=== PATIENT | male | born 1950 | race Caucasian/White ===

== ENCOUNTER → 2017-07-16 | Outpatient (CLI) | payer OTHER ==
[~2017-07-16] MED LIST: CHOL100027 PO; COEN1CAP40 PO; CYCL10TA6 PO; HYDR5TAB27 PO; MULT-618 PO; NXM/40 PO; PRAV20TA PO; [UNRECOGNIZED DRUG - OTHER] PO
[2017-07-16 12:15] LABS: BASO % 0.8 %; BASO ABS # 0.06 K/uL (0-0.2); COMPLETE YES; EOS % 4.7 %; HEMATOCRIT 46.3 % (42-52); IG% 0.3 %; LYMPH ABS # 2.52 K/uL (1.2-3.4); MEAN CELL VOLUME 94.1 fL (80-100); MEAN CORPUSCULAR HEMOGLOBIN 29.9 pg (25-34); MEAN CORPUSCULAR HGB CONC 31.7 g/dl (32-36); MEAN PLATELET VOLUME 11.1 fL (7.4-10.4); MONO % 9.9 %; NEUT % 49.3 %; PLATELET COUNT 221 K/uL (130-400); RED BLOOD COUNT 4.92 M/uL (4.7-6.1)
[2017-07-16 12:57] LABS: ALT/SGPT 30 U/L (12-78); BLOOD UREA NITROGEN 19 mg/dl (7-18); BUN/CREATININE RATIO 17.5 (10-20); CALCIUM 9.7 mg/dl (8.5-10.1); CARBON DIOXIDE 28 mmol/L (21-32); CHLORIDE 104 mmol/L (98-107); CHOLESTEROL 171 mg/dl (0-200); GLUCOSE 118 mg/dl (70-99); POTASSIUM 3.6 mmol/L (3.5-5.1); SODIUM 140 mmol/L (136-145)
[2017-07-16 13:01] LABS: ALB/GLOB RATIO 1.2 (0.9-2); ALKALINE PHOSPHATASE 45 U/L (45-117); AST/SGOT 19 U/L (15-37); CHOLESTEROL/HDL RATIO 2.9; HDL CHOLESTEROL 59 mg/dl; LDL CHOLESTEROL CALCULATED 74 mg/dl; TRIGLYCERIDES 189 mg/dl (0-150); VERY LOW DENSITY LIPOPROT CALC 38 mg/dl
[2017-07-16 13:05] LABS: ESTIMATED AVERAGE GLUCOSE 108 mg/dl; HA1C FLAG Normal (Normal)
== END | disposition home or self-care (01) ==
LOC: C.LABBFT 09:17
PROVIDERS: ATTEND Physician Assistant Medical
DX: R73.01 Impaired fasting glucose (principal); D21.9 Benign neoplasm of connective and other soft tissue, unspecified; R97.20 Elevated prostate specific antigen [PSA]; E78.5 Hyperlipidemia, unspecified

== ENCOUNTER 2025-07-13 01:44 | Observation (INO) ==
[2025-07-13] MEDS ORDERED: VANCOMYCIN CONSULT ACTIVE PRN (01:56)
--- NOTE | 2025-07-13 01:58 | Emergency Department Note ---
History of Present Illness General Chief complaint: Referred by Doctor Stated complaint: ABN LABS Time Seen by Provider: 07/13/25 01:45 History of Present Illness Maximum Pain Intensity: 2 This 75-year-old male that I saw yesterday for subjective fever and chills his is currently admitted for positive blood cultures and urine infection presents for positive blood culture. He had a septic workup yesterday with no acute findings noted. He complains of subjective fever and chills. Patient denies chest pain, dyspnea, vomiting, diarrhea, urinary symptoms. Patient was called back and by staff for the positive blood culture. Home Medications Medication Instructions Recorded Confirmed Type famotidine 20 mg tablet 20 mg PO BID PRN 09/01/20 07/11/25 History HEARTBURN/INDIGESTION multivitamin 1 tab PO QAM 03/27/21 07/11/25 History losartan 50 mg tablet 50 mg PO BID 90 days #180 tabs 08/05/24 07/11/25 Rx potassium chloride 20 mEq 20 meq PO QAM #90 tabs 08/05/24 07/11/25 Rx tablet,extended release pravastatin 40 mg tablet 40 mg PO DAILY #90 tabs 08/05/24 07/11/25 Rx acetaminophen 650 mg 1,300 mg PO DIRECTED PRN Pain 08/20/24 07/11/25 History tablet,extended release (Tylenol Arthritis Pain) Allergies Allergy/AdvReac Type Severity Reaction Status Date / Time No Known Allergies Allergy Verified 07/11/25 23:07 Past Med/Surg History Problem List (Updated 07/13/25 @ 02:01 by Ynes Vela PA-C) Positive blood culture (Acute) Fatigue (Acute) Herniation of lumbar intervertebral disc with radiculopathy Lumbar stenosis without neurogenic claudication Flat back Lumbar spondylosis Protrusion of lumbar intervertebral disc Lumbar spinal stenosis GERD (gastroesophageal reflux disease) (Acute 03/10/13) Chest pain (Acute) Impaired fasting glucose Hypertension (Chronic) Hyperlipidemia BPH (benign prostatic hyperplasia) Incomplete emptying of bladder Elevated prostate specific antigen (PSA) Right sided sciatica Medical History Renal cyst, right Gross hematuria Colon cancer screening Medicare annual wellness visit, subsequent Other and unspecified hyperlipidemia (03/10/13) 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 Mcelroy, normal findings, recheck 10 years History of hand surgery "couple fingers reconnected on my right hand"--denies any hardware Family History Mother Heart disease COPD (chronic obstructive pulmonary disease) Father Myocardial infarction Coronary heart disease Brother Hypertension Family hx colonic polyps Other No family history of adverse response to anesthesia Denies family history of Ovarian cancer Prostate cancer Breast cancer Colorectal cancer Social History Smoking Status: Never smoker Second Hand Exposure: No; Do You Dip or Chew Tobacco: No; Hx Alcohol Use: Yes Alcohol type: hard liquor Alcohol Intake Frequency: 4 or More x per/Week Hx Substance Use: No Preferred Language: Albanian Communication Ability: Effective Visual Impairment: No Limitations Hearing Ability: Normal Nutrition Partner Required: No Beliefs That Will Affect Care: None marital status: Current Living Situation: Spouse current occupational status: retired 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 Feels Safe at Home: Yes Childhood Exposure to Second-Hand Smoke: Yes Diet: regular caffeine: Yes (rarley) Dental Care, Regularly: Yes Physical Activity Frequency Comment: as able Seatbelt Use: always Sunscreen Use: Yes Assistive Devices: Glasses Review of Systems A total of 10 systems reviewed and were otherwise negative Physical Exam Vital Signs Vital Signs - 24 hr 07/13/25 01:45 07/13/25 01:48 07/13/25 02:04 Temperature 36.7 C Temperature Source Oral Pulse Rate 70 89 73 Pulse Rate [Apical] Pulse Rate from SpO2 Sensor Pulse Rhythm [Apical] Pulse Strength [Apical] Respiratory Rate 16 18 Respiratory Effort / Characteristics Respiratory Depth Respiratory Pattern Blood Pressure 136/79 Blood Pressure [Left Arm] Blood Pressure Mean 98 Blood Pressure Mean [Left Arm] Blood Pressure Position [Left Arm] Pulse Oximetry 98 96 Oxygen Delivery Method Room Air Room Air Sepsis Recent Fever Within 48 Hours No Sepsis New/Unexplained Change in Mental Status No Sepsis Action Taken by Nursing No Action Required 07/13/25 02:06 07/13/25 02:10 07/13/25 02:15 Temperature Temperature Source Pulse Rate 74 Pulse Rate [Apical] 70 Pulse Rate from SpO2 Sensor Pulse Rhythm [Apical] Regular Pulse Strength [Apical] Normal Respiratory Rate 18 18 Respiratory Effort / Characteristics Non-Labored Spontaneous Respiratory Depth Normal Respiratory Pattern Regular Blood Pressure 142/82 H Blood Pressure [Left Arm] 142/82 H Blood Pressure Mean 90 Blood Pressure Mean [Left Arm] 102 Blood Pressure Position [Left Arm] Lying Pulse Oximetry 96 Oxygen Delivery Method Room Air Sepsis Recent Fever Within 48 Hours Sepsis New/Unexplained Change in Mental Status Sepsis Action Taken by Nursing 07/13/25 02:15 Temperature Temperature Source Pulse Rate 71 Pulse Rate [Apical] Pulse Rate from SpO2 Sensor 72 Pulse Rhythm [Apical] Pulse Strength [Apical] Respiratory Rate 17 Respiratory Effort / Characteristics Respiratory Depth Respiratory Pattern Blood Pressure Blood Pressure [Left Arm] Blood Pressure Mean Blood Pressure Mean [Left Arm] Blood Pressure Position [Left Arm] Pulse Oximetry 98 Oxygen Delivery Method Room Air Sepsis Recent Fever Within 48 Hours Sepsis New/Unexplained Change in Mental Status Sepsis Action Taken by Nursing VITALS: Vitals are noted on the nurse's note and reviewed by myself. Vital signs stable. GENERAL: Pleasant gentleman ambulated from triage to [facility] without difficulties, in no acute distress, nondiaphoretic, well-developed well-nourished. SKIN: The skin was without rashes, erythema, edema, or bruising. There is no tenting of the skin. Capillary reflex less than 2 seconds. HEAD: Normocephalic atraumatic. EARS: External auditory canals clear EYES: Pupils equal round and reactive to light and accommodation. Conjunctivae without injection, sclerae without icterus. Extraocular movements intact. NOSE: Patent, no discharge. MOUTH: Mucous membranes moist. Pharynx without erythema or exudate. Uvula midline. Airway patent. Tongue does not deviate. NECK: Supple without nuchal rigidity. No lymphadenopathy. No thyromegaly. Cervical spine is nontender. No JVD. HEART: Regular rate and rhythm LUNGS: Clear to auscultation bilaterally without wheezes, rales or rhonchi. No retractions or accessory muscle use. ABDOMEN: Positive bowel sounds x 4. Normal tympanic percussion. Soft, nontender, without masses or organomegaly. Rivas sign negative. No guarding or rebound tenderness. No CVA tenderness MUSCULOSKELETAL: No muscle atrophy, erythema, or edema noted. NEURO: Patient was alert and oriented to person place and time. Normal sensation to light and sharp touch. No focal neurological deficits. Course Administered Medications Vancomycin HCl 1,500 mg/ (Sodium Chloride) 530 mls @ 200 mls/hr IV NOW ONE Stop: 07/13/25 04:34 Last Admin: 07/13/25 02:47 Dose: 200 mls/hr Documented By: PATTI Discontinued Medications Sodium Chloride (Nss) 1,000 mls @ 999 mls/hr IV .Q1H1M JUDAH Stop: 07/13/25 02:45 Last Infusion: 07/13/25 02:49 Dose: Infused Documented By: Admin: 07/13/25 02:06 Dose: 999 mls/hr Documented By: AVNI Piperacillin Sod/Tazobactam Sod (Zosyn) 4.5 gm in 100 mls @ 200 mls/hr IV NOW STA Stop: 07/13/25 02:14 Last Infusion: 07/13/25 02:49 Dose: Infused Documented By: Admin: 07/13/25 02:09 Dose: 200 mls/hr Documented By: AVNI Medical Decision Making Medical Records Attestation: I reviewed the patient's medical records. Home Medications Current Medication List: was personally reviewed by me Laboratory Data Attestation: I reviewed the patient's lab results. 07/13/25 01:57 07/13/25 01:57 Lab Results 07/13/25 Range/Units 01:57 WBC 7.90 (4.8-10.8) K/ul RBC 5.22 (4.70-6.10) M/uL Hgb 16.1 (14.0-18.0) g/dl Hct 48.0 (42.0-52.0) % MCV 92.0 (80.0-100.0) fL MCH 30.8 (25.0-34.0) pg MCHC 33.5 (32.0-36.0) g/dL RDW Std Deviation 42.2 (36.4-46.3) fL RDW Coeff of Taylor 12.4 (11.5-14.5) % Plt Count 201 (130-400) K/uL MPV 10.3 (9.4-12.4) fL Immature Gran % (Auto) 0.1 % Neut % (Auto) 46.5 % Lymph % (Auto) 42.4 % [place] % (Auto) 9.9 % Eos % (Auto) 0.0 % Baso % (Auto) 1.1 % Neut # (Auto) 3.67 (1.40-6.50) K/uL Lymph # (Auto) 3.35 (1.20-3.40) K/uL [place] # (Auto) 0.78 H (0.11-0.59) K/uL Eos # (Auto) 0.00 (0.00-0.50) K/uL Baso # (Auto) 0.09 (0.00-0.20) K/uL Immature Gran # (Auto) 0.01 (0.01-0.20) K/uL Sodium 141 (136-145) mmol/L Potassium 3.7 (3.5-5.1) mmol/L Chloride 107 (98-107) mmol/L Carbon Dioxide 26 (21-32) mmol/L Anion Gap 8 (3-11) BUN 15 (6-23) mg/dl Creatinine 0.83 (0.6-1.4) mg/dl Est Cr Clr Drug Dosing 83.2 ml/min eGFR 91.84 BUN/Creatinine Ratio 18.1 (10-20) Glucose 113 H (70-99(Fasting)) mg/dl Lactate 1.7 (0.4-2.0) mmol/L Calcium 10.0 (8.6-10.3) mg/dl Magnesium 2.1 (1.7-2.4) mg/dl Total Bilirubin 0.8 (0.2-1.0) mg/dl Direct Bilirubin 0.1 (0-0.2) mg/dl AST 16 (13-39) U/L ALT 15 (7-52) U/L Alkaline Phosphatase 50 (34-104) U/L Troponin I High Sens 9.5 (0-20) pg/ml Total Protein 7.8 (6.0-8.3) gm/dl Albumin 4.7 (3.4-5.0) gm/dl Procalcitonin < 0.02 (0-0.5) ng/ml Imaging Data Attestation: I personally reviewed and interpreted this imaging study as follows: MDM Narrative Prior records/ancillary studies reviewed. Triage Nursing notes reviewed. Additional history obtained from nursing. The patient's history was concerning for positive blood culture Differential diagnosis: Etiologies such as skin contaminant, viral syndrome, otitis, pharyngitis, pneumonia, influenza, meningitis, urinary tract infection, sepsis, bacteremia, as well as others were entertained. Physical examination: As above ER treatment provided: An order was placed for continuous cardiac monitoring. The monitor shows a rate of 60-100 with a sinus rhythm per my interpretation. IV fluids, Zosyn and vancomycin ordered On reassessment the patient felt better. Diagnostics interpreted by me: ECG: Ordered for positive blood culture EKG: Normal sinus, normal intervals, poor baseline, no acute ST-T wave changes, rate 81. Impression normal sinus rhythm independently interpreted by myself The labs Independently Interpreted by myself revealed no worrisome leukocytosis, negative lactic. Negative procalcitonin. Negative troponin. Positive blood culture 1 of 2 Repeat cultures were drawn Imaging studies: Chest x-ray with no acute consolidation, pneumothorax or free air per my independent termination CT was reviewed from yesterday. Consultation: A consultation was placed with hospitalist. The case was discussed and diagnostics were reviewed. The patient was evaluated in the ER for further treatment. This appears to be consistent with 1 of 2 positive blood cultures. Patient started on broad-spectrum antibiotics. Medicine was consulted and case discussed. He will be evaluated for admission. No obvious source. This could be skin contaminant. Patient is agreeable to treatment plan. By the evaluation outlined above emergent etiologies such as otitis, pharyngitis, pneumonia, meningitis, urinary tract infection, as well as others were deemed relatively unlikely. The pt informed about the findings as listed above. All questions were answered and pleased with the treatment. The chart was completed utilizing Peak 10 Speech voice recognition software. Grammatical errors, random word insertions, pronoun errors, and incomplete sentences are an occassional consequence of this system due to software limitations, ambient noise, and hardware issues. Any formal questions or concerns about the content, text, or information contained within the body of this dictation should be directly addressed to the physician registered sales assistant for clarification. Impression & Plan Positive blood culture Discharge Plan Visit Data Chief Complaint: Referred by Doctor Stated Complaint: ABN LABS ED Provider: Vivian [place] ED Midlevel Provider: Ynes Vela Discharge Problem: Positive blood culture Patient Disposition: Admitted As Inpatient Condition: Good Forms Stand Alone Forms: My [facility] Prescriptions Prescriptions: No Action acetaminophen [Tylenol Arthritis Pain] 650 mg tablet extended release 1,300 mg PO DIRECTED PRN (Reason: Pain) pravastatin 40 mg tablet 40 mg PO DAILY Qty: 90 3RF potassium chloride 20 mEq tablet extended release 20 meq PO QAM Qty: 90 3RF losartan 50 mg tablet 50 mg PO BID 90 Days Qty: 180 3RF famotidine 20 mg tablet 20 mg PO BID PRN (Reason: HEARTBURN/INDIGESTION) multivitamin Tablet 1 tab PO QAM Referrals Referrals: Lit Limon DO [Primary Care Provider] -
[2025-07-13] MEDS: SODIUM CHLORIDE 0.9% 1,000 ML IV SCH (02:06)
[2025-07-13] MEDS: PIPERACILLIN/TAZOBACTAM 4.5 GM/100 ML BAG IV STA (02:09)
[2025-07-13 02:21] LABS: Hematocrit (blood only) 48.0 % (42.0-52.0); Hemoglobin 16.1 g/dl (14.0-18.0); Immature Granulocytes # (auto) 0.01 K/uL (0.01-0.20); Immature Granulocytes % (auto) 0.1 %; Mean Corpuscular Hemoglobin 30.8 pg (25.0-34.0); Mean Corpuscular Volume 92.0 fL (80.0-100.0); Platelet Count 201 K/uL (130-400); RDW Standard Deviation 42.2 fL (36.4-46.3); Red Blood Count 5.22 M/uL (4.70-6.10); White Blood Count 7.90 K/ul (4.8-10.8)
--- NOTE | 2025-07-13 02:30 | History & Physical Report ---
Date of Service July 13, 2025 Assessment & Plan (1) Positive blood culture: (2) Fatigue: (3) Hypertension: (4) Hyperlipidemia: Plan #Strep bacteremia/malaise/chills - 1 Blood Cx, pos for streptococcus (further species identification, sensitivities pending) - given 1 dose (4.5 g) Zosyn and 1 dose (1.5 g) of Vancomycin in ER - will start Unasyn, 1.5 g, IV, q6h; will likely need 10-14 days of Tx - consider TTE or ALEX to rule out endocarditis depending upon specific species of Strep Chronic conditions #HLD - continue pravastatin #HTN - continue losartan, KCl #GERD - continue famotidine Code status: Full code Disposition: Med-Surg VTE Prophylaxis: Enoxaparine, 40 mg, subQ, daily FENGI: regular diet, LR 80 mL/hr, 1000 mL total History of Present Illness Chief Complaint: Pos Strep Blood Cx General malaise, chills, lower abdominal pain Primary Care Provider: Lit Limon, DO Patient is a 75 yo M w/ a PMHx of lumbar stenosis/herniation of disc, GERD, HTN, HLD, BPH, right-sided sciatica, r. renal cyst, cervical radiculopathy, laryngopharyngeal reflux, Hx of bladder surgery, presenting today after being seen in ER yesterday w/ concerns for possible sepsis, as he was having some chills and general malaise, and his had recently been admitted to the [facility] for a MRSE bacteremia. Patient denies any recent dental work, had a crown replaced 2 weeks ago, denies any urinary symptoms, does endorse some suprapubic pain and more flatus than normal recently, along with some diarrhea, that got noticeably worse after starting antibiotics yesterday. Patient denies any abdominal pain, nausea, or vomiting. Allergies Allergy/AdvReac Type Severity Reaction Status Date / Time No Known Allergies Allergy Verified 07/11/25 23:07 Home Medications Medication Instructions Recorded Confirmed Type famotidine 20 mg tablet 20 mg PO BID PRN 09/01/20 07/11/25 History HEARTBURN/INDIGESTION multivitamin 1 tab PO QAM 03/27/21 07/11/25 History losartan 50 mg tablet 50 mg PO BID 90 days #180 tabs 08/05/24 07/11/25 Rx potassium chloride 20 mEq 20 meq PO QAM #90 tabs 08/05/24 07/11/25 Rx tablet,extended release pravastatin 40 mg tablet 40 mg PO DAILY #90 tabs 08/05/24 07/11/25 Rx acetaminophen 650 mg 1,300 mg PO DIRECTED PRN Pain 08/20/24 07/11/25 History tablet,extended release (Tylenol Arthritis Pain) Past Med/Surg History Problem List Positive blood culture (Acute) Fatigue (Acute) Herniation of lumbar intervertebral disc with radiculopathy Lumbar stenosis without neurogenic claudication Flat back Lumbar spondylosis Protrusion of lumbar intervertebral disc Lumbar spinal stenosis GERD (gastroesophageal reflux disease) (Acute 03/10/13) Chest pain (Acute) Impaired fasting glucose Hypertension (Chronic) Hyperlipidemia BPH (benign prostatic hyperplasia) Incomplete emptying of bladder Elevated prostate specific antigen (PSA) Right sided sciatica Medical History Renal cyst, right Gross hematuria Colon cancer screening Medicare annual wellness visit, subsequent Other and unspecified hyperlipidemia (03/10/13) 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 Mcelroy, normal findings, recheck 10 years History of hand surgery "couple fingers reconnected on my right hand"--denies any hardware Family History Mother Heart disease COPD (chronic obstructive pulmonary disease) Father Myocardial infarction Coronary heart disease Brother Hypertension Family hx colonic polyps Other No family history of adverse response to anesthesia Denies family history of Ovarian cancer Prostate cancer Breast cancer Colorectal cancer Social History Smoking Status: Never smoker Second Hand Exposure: No; Do You Dip or Chew Tobacco: No; Hx Alcohol Use: Yes Alcohol type: hard liquor Alcohol Intake Frequency: 4 or More x per/Week Hx Substance Use: No Preferred Language: Indian Communication Ability: Effective Visual Impairment: No Limitations Hearing Ability: Normal Import/Export Freight Forwarder Required: No Beliefs That Will Affect Care: None marital status: Current Living Situation: Spouse current occupational status: retired 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 Safe at Home: Yes Childhood Exposure to Second-Hand Smoke: Yes Diet: regular caffeine: Yes (prabhakar) Dental Care, Regularly: Yes Physical Activity Frequency Comment: as able Seatbelt Use: always Sunscreen Use: Yes Assistive Devices: Glasses Review of Systems Constitutional: + chills, + sweats, + fatigue and + talon ise; no fever Respiratory: no cough, no chest congestion, no dyspnea and no wheezing Cardiovascular: no chest pain and no palpitations Gastrointestinal: + excessive flatulence and + diarrhea/lo ose stools; no abdominal pain, no nausea and no vomiting Genitourinary: no dysuria or no urinary frequency Neurologic: + headache(s); no tingling and no numbne ss Physical Exam Constitutional: WD/WN, vitals as above Respiratory: normal respiratory effort, lungs clear to auscultation Cardiovascular: RRR, no murmur, no edema Extremities: normal capillary refill; no calf tenderness Gastrointestinal (Abdomen): Inspection/Auscultation: abdomen normal to inspection and normal bowel sounds Percussion/Palpation: + abdomen tender (suprapubic tenderness) Psychiatric: A+Ox3, euthymic affect Results & Data Results & Data Vital Signs (Past 12 Hours) Vital Signs Temp Pulse Pulse Resp BP BP Pulse Ox 07/13/25 02:15 71 17 98 07/13/25 02:15 70 18 142/82 H 96 07/13/25 02:10 142/82 H 07/13/25 02:06 74 18 07/13/25 02:04 73 07/13/25 01:48 36.7 C 89 18 136/79 96 07/13/25 01:45 70 16 98 O2 Del Method 07/13/25 02:15 Room Air 07/13/25 02:15 Room Air 07/13/25 02:10 07/13/25 02:06 07/13/25 02:04 07/13/25 01:48 Room Air 07/13/25 01:45 Room Air Laboratory Results Laboratory Results WBC 7.90 K/ul (4.8-10.8) 07/13/25 01:57 RBC 5.22 M/uL (4.70-6.10) 07/13/25 01:57 Hgb 16.1 g/dl (14.0-18.0) 07/13/25 01:57 Hct 48.0 % (42.0-52.0) 07/13/25 01:57 MCV 92.0 fL (80.0-100.0) 07/13/25 01:57 MCH 30.8 pg (25.0-34.0) 07/13/25 01:57 MCHC 33.5 g/dL (32.0-36.0) 07/13/25 01:57 RDW Std Deviation 42.2 fL (36.4-46.3) 07/13/25 01:57 RDW Coeff of Taylor 12.4 % (11.5-14.5) 07/13/25 01:57 Plt Count 201 K/uL (130-400) 07/13/25 01:57 MPV 10.3 fL (9.4-12.4) 07/13/25 01:57 Immature Gran % (Auto) 0.1 % 07/13/25 01:57 Neut % (Auto) 46.5 % 07/13/25 01:57 Lymph % (Auto) 42.4 % 07/13/25 01:57 [place] % (Auto) 9.9 % 07/13/25 01:57 Eos % (Auto) 0.0 % 07/13/25 01:57 Baso % (Auto) 1.1 % 07/13/25 01:57 Neut # (Auto) 3.67 K/uL (1.40-6.50) 07/13/25 01:57 Lymph # (Auto) 3.35 K/uL (1.20-3.40) 07/13/25 01:57 [place] # (Auto) 0.78 K/uL (0.11-0.59) H 07/13/25 01:57 Eos # (Auto) 0.00 K/uL (0.00-0.50) 07/13/25 01:57 Baso # (Auto) 0.09 K/uL (0.00-0.20) 07/13/25 01:57 Immature Gran # (Auto) 0.01 K/uL (0.01-0.20) 07/13/25 01:57 Sodium 141 mmol/L (136-145) 07/13/25 01:57 Potassium 3.7 mmol/L (3.5-5.1) 07/13/25 01:57 Chloride 107 mmol/L (98-107) 07/13/25 01:57 Carbon Dioxide 26 mmol/L (21-32) 07/13/25 01:57 Anion Gap 8 (3-11) 07/13/25 01:57 BUN 15 mg/dl (6-23) 07/13/25 01:57 Creatinine 0.83 mg/dl (0.6-1.4) 07/13/25 01:57 Est Cr Clr Drug Dosing 83.2 ml/min 07/13/25 01:57 eGFR 91.84 07/13/25 01:57 BUN/Creatinine Ratio 18.1 (10-20) 07/13/25 01:57 Glucose 113 mg/dl (70-99(Fasting)) H 07/13/25 01:57 Lactate 1.7 mmol/L (0.4-2.0) 07/13/25 01:57 Calcium 10.0 mg/dl (8.6-10.3) 07/13/25 01:57 Magnesium 2.1 mg/dl (1.7-2.4) 07/13/25 01:57 Total Bilirubin 0.8 mg/dl (0.2-1.0) 07/13/25 01:57 Direct Bilirubin 0.1 mg/dl (0-0.2) 07/13/25 01:57 AST 16 U/L (13-39) 07/13/25 01:57 ALT 15 U/L (7-52) 07/13/25 01:57 Alkaline Phosphatase 50 U/L (34-104) 07/13/25 01:57 Troponin I High Sens 9.5 pg/ml (0-20) 07/13/25 01:57 Total Protein 7.8 gm/dl (6.0-8.3) 07/13/25 01:57 Albumin 4.7 gm/dl (3.4-5.0) 07/13/25 01:57 Procalcitonin < 0.02 ng/ml (0-0.5) 07/13/25 01:57 Urine Color Yellow 07/13/25 03:29 Urine Appearance Clear (Clear) 07/13/25 03:29 Urine pH 5.5 (4.5-7.5) 07/13/25 03:29 Ur Specific [place] 1.009 (1.000-1.030) 07/13/25 03:29 Urine Protein Negative (Negative) 07/13/25 03:29 Urine Glucose (UA) Negative (Negative) 07/13/25 03:29 Urine Ketones Negative (Negative) 07/13/25 03: Urine Blood Negative (Negative) 07/13/25 03: Urine Nitrite Negative (Negative) 07/13/25 03:29 Urine Bilirubin Negative (Negative) 07/13/25 03:29 Urine Urobilinogen Negative (Negative) 07/13/25 03:29 Ur Leukocyte Esterase Trace (Negative) H 07/13/25 03:29 Urine WBC (Auto) 0-5 /hpf (0-5) 07/13/25 03:29 Urine RBC (Auto) 0-2 /hpf (0-2) 07/13/25 03:29 U Hyaline Cast (Auto) 0-2 /lpf (0-2) 07/13/25 03:29 U Epithel Cells (Auto) 0-2 /hpf (0-2) 07/13/25 03:29 Urine Bacteria (Auto) None Seen (None Seen) 07/13/25 03:29 Urine Comment 07/13/25 03:29 Impressions Chest X-Ray 07/13/25 01:45 EXAM: XR chest 1V portable CLINICAL HISTORY: Sepsis. TECHNIQUE: An X-ray image of the chest is obtained in AP projection. COMPARISON: 07/11/2025 22:05:50 DIRECTOR OF CONTENT MARKETING. FINDINGS: Pulmonary Parenchyma: Lungs are clear bilaterally. No evidence of consolidation, collapse, or focal opacities. No pulmonary nodules are identified. No evidence of pleural effusion or pleural thickening. Heart and Mediastinum: Heart size and shape are normal. No mediastinal widening or masses. No hilar or mediastinal lymphadenopathy. Bony Thorax: Bony thorax appears intact without fractures or deformities. Stable arthritis AC joints is noted Soft Tissues: Soft tissues overlying the chest wall are unremarkable. IMPRESSION: 1. No acute cardiopulmonary abnormalities are identified. 2. No interval time changes. Electronically signed by Wagner Limon 07-13-2025 03:20 AM Supervising Physician Co-Signing Physician Notes Patient seen and examined, chart reviewed, case discussed with Dr. Jackson and I agree with the assessment and plan as above. Patient with POSITIVE blood cultures - Streptococcus, speciation and sensitivities pending. He is symptomatic with fevers and chills, typically at night. Source unclear - he does endorse some lower abdominal pain. Recently lost a dental crown. Exam is largely unremarkable No heart murmur Lower abdomen is tender to palpation - no rebound or guarding labs and images reviewed blood cultures have been repeated Assessment/Plan -Unasyn for now -Repeat blood cutures sent from the ER -Remainder as above (2) Fatigue Fatigue type: unspecified Qualified Code(s): R53.83 - Other fatigue
[2025-07-13 02:38] LABS: Alanine Aminotransferase 15.0 U/L (7-52); Alkaline Phosphatase 50.0 U/L (34-104); Anion Gap 8.0 (3-11); Bilirubin,Total 0.8 mg/dl (0.2-1.0); Blood Urea Nitrogen 15.0 mg/dl (6-23); Calcium 10.0 mg/dl (8.6-10.3); Carbon Dioxide 26.0 mmol/L (21-32); Chloride 107.0 mmol/L (98-107); Creatinine Clr Calc Pharmacy 83.2 ml/min; Glucose 113.0 mg/dl (70-99(Fasting)); Magnesium 2.1 mg/dl (1.7-2.4); Potassium 3.7 mmol/L (3.5-5.1); Sodium 141.0 mmol/L (136-145); Total Protein 7.8 gm/dl (6.0-8.3)
--- NOTE | 2025-07-13 02:45 | Emergency Department Note ---
ED Visit Note I was consulted by the Advanced Practice Provider. I personally made/approved the management plan and take responsibility for the patient management. I performed a substantive portion of the visit. This includes the aspects of: Personally seeing the patient -MDM -I independently interpreted the following studies:Portable chest x-ray -unremarkable. No obvious signs of consolidation or opacity. .
[2025-07-13] MEDS ORDERED: ONDANSETRON INJ 2 MG/ML 2 ML VIAL IV PRN (02:47)
[2025-07-13] MEDS ORDERED: MELATONIN 3 MG TAB PO PRN (02:47)
[2025-07-13] MEDS ORDERED: ACETAMINOPHEN 325 MG TAB PO PRN (02:47)
[2025-07-13] MEDS ORDERED: POLYETHYLENE (MIRALAX) 17 GM PACK PO PRN (02:47)
[2025-07-13] MEDS: VANCOMYCIN HCL 1,500 MG in SODIUM CHLORIDE 0.9% 500 ML IV ONE (02:47)
--- NOTE | 2025-07-13 03:20 | XRay Report ---
EXAM: XR chest 1V portable CLINICAL HISTORY: Sepsis. TECHNIQUE: An X-ray image of the chest is obtained in AP projection. COMPARISON: 07/11/2025 22:05:50 [employer]LE[employer]ER [employer] PULP. FINDINGS: Pulmonary Parenchyma: Lungs are clear bilaterally. No evidence of consolidation, collapse, or focal opacities. No pulmonary nodules are identified. No evidence of pleural effusion or pleural thickening. Heart and Mediastinum: Heart size and shape are normal. No mediastinal widening or masses. No hilar or mediastinal lymphadenopathy. Bony Thorax: Bony thorax appears intact without fractures or deformities. Stable arthritis AC joints is noted Soft Tissues: Soft tissues overlying the chest wall are unremarkable. IMPRESSION: 1. No acute cardiopulmonary abnormalities are identified. 2. No interval time changes. Electronically signed by Wagner Limon 07-13-2025 03:20 AM
[2025-07-13] MEDS: LACTATED RINGER'S 1,000 ML IV SCH (03:33)
[2025-07-13 03:42] LABS: Appearance Urine Clear (Clear); Bacteria Urine Automated None Seen (None Seen); Cast Urine Automated 0-2 /lpf (0-2); Epithelial Cell Urine Auto 0-2 /hpf (0-2); Glucose Urine UA Negative (Negative); RBC Urine Automated 0-2 /hpf (0-2); WBC Urine Automated 0-5 /hpf (0-5)
--- NOTE | 2025-07-13 03:59 | Billing Data ---
Date of Service July 13, 2025 Coding Level of Care Code 96071 INT INP/OBS CARE
[2025-07-13 05:20] LABS: Anion Gap 5.0 (3-11); Blood Urea Nitrogen 13.0 mg/dl (6-23); Calcium 8.6 mg/dl (8.6-10.3); Carbon Dioxide 27.0 mmol/L (21-32); Chloride 111.0 mmol/L (98-107); Creatinine Clr Calc Pharmacy 84.2 ml/min; Potassium 3.6 mmol/L (3.5-5.1); Sodium 143.0 mmol/L (136-145)
[2025-07-13] MEDS: AMPICILLIN/SULBACTAM SOD 3,000 MG/100 ML BAG IV SCH (08:04)
[2025-07-13] MEDS: PRAVASTATIN SOD 40 MG TAB PO SCH (08:06)
[2025-07-13] MEDS: LOSARTAN POTASSIUM 50 MG TAB PO SCH (08:06)
[2025-07-13] MEDS: MULTIVITAMIN TAB PO SCH (08:06)
[2025-07-13] MEDS: POTASSIUM CHLORIDE CRTAB 20 MEQ TABCR PO SCH (08:07)
[2025-07-13] MEDS: ENOXAPARIN INJ 40 MG/0.4 ML SYR SQ SCH (08:09)
--- NOTE | 2025-07-13 11:46 | Electrocardiogram Report ---
Test Reason : Blood Pressure : */* mmHG Vent. Rate : 81 BPM Atrial Rate : 81 BPM P-R Int : 172 ms QRS Dur : 90 ms QT Int : 392 ms P-R-T Axes : 48 -15 60 degrees QTcB Int : 455 ms Normal sinus rhythm Nonspecific ST abnormality Abnormal ECG When compared with ECG of 11-Jul-2025 22:58, Premature ventricular complexes are no longer Present Confirmed by Chalino Rico ([id number]) on 07/13/2025 11:45:52 AM Referred By: REFERRED SELF Confirmed By: Chalino Rico
--- NOTE | 2025-07-13 12:10 | Hospitalist Progress Note ---
Date of Service July 13, 2025 Assessment & Plan (1) Positive blood culture: (2) Fatigue: (3) Hypertension: (4) Hyperlipidemia: Plan Pablo is a 75-year-old male with a past medical history of hypertension, GERD, HLD who presents after recall with positive blood cultures. Was seen in the ED on 07/11 with fevers and chills and abdominal discomfort at that time with an unremarkable workup and was sent home and instructed to do supportive care. Returned on 07/13 after being notified of positive blood cultures. #Strep bacteremia/malaise/chills - source unclear. CT A/P 07/11 without acute infection. UA noninfectious. No cough cold or congestion symptoms. No hardware. Recent dental procedure 2 to 3 weeks ago however no dental pain or dental issues, Was not given antibiotics outpatient. No leukocytosis. 07/12 BC: 11/14 pos for streptococcus (further species identification, sensitivities pending) Repeat Blood cultures pending Continue Unasyn - consider TTE or ALEX to rule out endocarditis depending upon specific species of Strep - overall this could be an contaminate but no source of chills, but remains afebrile. #HLD - continue pravastatin #HTN - continue losartan, KCl #GERD- continue famotidine Disposition: continued inpatient stay awaiting cultures VTE Prophylaxis:lovenox Admission and Anticipated Discharge Date Admission Date: July 13, 2025 Subjective Patient seen holding down in the ER. Reports that he did have overnight chills last night. No clear source of infection. Does report he had a dental crown replaced 2 to 3 weeks ago was not on antibiotics for that. No documented fevers at home. No weakness. No skin bites or rashes or abnormal skin lesions. No prosthetic joints or other hardware in his body. No cough cold or congestion symptoms. No urinary symptoms Review of Systems Review of Systems: All systems reviewed & are unremarkable except as noted in Subjective Physical Exam Physical Exam: General: NAD, VS as above Resp: normal respiratory effort, lungs clear to auscultation CV: RRR, no murmur, Abd: normal bowel sounds, non tender, no hepatosplenomegaly Extremities: Moves all extremities, no edema Neuro: A&O x3, Skin: intact, no lesions noted Results & Data Results & Data Vital Signs (Past 12 Hours) Vital Signs Temp Pulse Pulse Resp BP BP Pulse Ox 07/13/25 08:04 71 23 143/79 H 97 07/13/25 07:06 61 13 132/75 96 07/13/25 07:04 53 L 07/13/25 06:00 67 12 130/80 94 07/13/25 05:45 66 16 126/71 95 07/13/25 05:30 74 17 95 07/13/25 05:00 70 18 126/71 95 07/13/25 04:30 66 17 95 07/13/25 04:00 54 L 16 124/73 91 07/13/25 03:30 70 14 97 07/13/25 03:00 64 15 141/79 H 96 07/13/25 02:30 142/80 H 07/13/25 02:21 73 21 98 07/13/25 02:15 71 17 98 07/13/25 02:15 70 18 142/82 H 96 07/13/25 02:10 142/82 H 07/13/25 02:06 74 18 07/13/25 02:04 73 07/13/25 01:48 98.1 F 89 18 136/79 96 07/13/25 01:45 70 16 98 O2 Del Method 07/13/25 08:04 Room Air 07/13/25 07:06 07/13/25 07:04 07/13/25 06:00 Room Air 07/13/25 05:45 Room Air 07/13/25 05:30 Room Air 07/13/25 05:00 Room Air 07/13/25 04:30 07/13/25 04:00 Room Air 07/13/25 03:30 Room Air 07/13/25 03:00 Room Air 07/13/25 02:30 07/13/25 02:21 07/13/25 02:15 Room Air 07/13/25 02:15 Room Air 07/13/25 02:10 07/13/25 02:06 07/13/25 02:04 07/13/25 01:48 Room Air 07/13/25 01:45 Room Air PG Care Time/CCT Total # of Minutes Spent Total Time Spent with Patient: Total time spent is greater than 50% in coordination of care (as documented) at patient's floor/unit and/or counseling patient: Coding Level of Care Code None Diagnoses Positive blood culture R78.81 Fatigue R53.83 Fatigue type: unspecified Hypertension I10 Hyperlipidemia E78.5 (2) Fatigue Fatigue type: unspecified Qualified Code(s): R53.83 - Other fatigue
[2025-07-14 07:24] VITALS: BP 156/83; PULSE 62; RESP 18; TEMP 97.3; O2SAT 97
[2025-07-14 08:19] LABS: Hematocrit (blood only) 42.2 % (42.0-52.0); Hemoglobin 13.9 g/dl (14.0-18.0); Immature Granulocytes # (auto) 0.01 K/uL (0.01-0.20); Immature Granulocytes % (auto) 0.2 %; Mean Corpuscular Hemoglobin 30.6 pg (25.0-34.0); Mean Corpuscular Volume 93.0 fL (80.0-100.0); Platelet Count 165 K/uL (130-400); RDW Standard Deviation 42.6 fL (36.4-46.3); Red Blood Count 4.54 M/uL (4.70-6.10); White Blood Count 6.30 K/ul (4.8-10.8)
[2025-07-14 08:37] LABS: Anion Gap 5.0 (3-11); Blood Urea Nitrogen 10.0 mg/dl (6-23); Calcium 9.2 mg/dl (8.6-10.3); Carbon Dioxide 28.0 mmol/L (21-32); Chloride 108.0 mmol/L (98-107); Creatinine Clr Calc Pharmacy 89.6 ml/min; Glucose 94.0 mg/dl (70-99(Fasting)); Potassium 3.8 mmol/L (3.5-5.1); Sodium 141.0 mmol/L (136-145)
--- NOTE | 2025-07-14 09:34 | Discharge Summary ---
Discharge Summary Date of Service July 14, 2025 Principal Dx & Hospital Course #1 = Principal Diagnosis (1) Positive blood culture: (2) Fatigue: (3) Hypertension: (4) Hyperlipidemia: Plan #Strep bacteremia/malaise/chills Pablo is a 75-year-old male with a past medical history of hypertension, GERD, HLD who presents after recall with positive blood cultures. Was seen in the ED on 07/11 with fevers and chills and abdominal discomfort at that time with an unremarkable workup and was sent home and instructed to do supportive care. Returned on 07/13 after being notified of positive blood cultures- source unclear. CT A/P 07/11 without acute infection. UA noninfectious. No cough cold or congestion symptoms. No hardware. Recent dental procedure 2 to 3 weeks ago however no dental pain or dental issues, Was not given antibiotics outpatient. No leukocytosis. no fevers. 07/12 BC: 11/14 pos for streptococcus parasanguinis, Repeat Blood cultures negative at 24 hours. Truly doubt this was bacteremia as no other symptoms besides one blood culture that was likely a contaminate. Patient does feel like his chills have improved with Unasyn and will continue course of Augmentin for empiric infection. #HLD - continue pravastatin #HTN - continue losartan, KCl #GERD- continue famotidine Disposition: discharge to home with PCP follow up Admission HPI Per Admitting Provider Patient is a 75 yo M w/ a PMHx of lumbar stenosis/herniation of disc, GERD, HTN, HLD, BPH, right-sided sciatica, r. renal cyst, cervical radiculopathy, laryngopharyngeal reflux, Hx of bladder surgery, presenting today after being seen in ER yesterday w/ concerns for possible sepsis, as he was having some chills and general malaise, and his had recently been admitted to the [facility] for a MRSE bacteremia. Patient denies any recent dental work, had a crown replaced 2 weeks ago, denies any urinary symptoms, does endorse some suprapubic pain and more flatus than normal recently, along with some diarrhea, that got noticeably worse after starting antibiotics yesterday. Patient denies any abdominal pain, nausea, or vomiting. Discharge Exam General: NAD, VS as above Resp: normal respiratory effort, lungs clear to auscultation CV: RRR, no murmur, Abd: normal bowel sounds, non tender, no hepatosplenomegaly Extremities: Moves all extremities, no edema Neuro: A&O x3, Skin: intact, no lesions noted Discharge Plan Discharge Items Patient Disposition: Home - Self-Care Reason For Visit: STREP BACTEREMIA Discharge Diagnosis: Chills Condition on Discharge: Good Activity: Resume your previous activity Bathing: No limitations Driving/Machine Use: No limitations Weightbearing: Full weightbearing Non-emergency contact: Primary Care Provider Call non-emergency contact if: you have any medication questions, your symptoms worsen and your temperature is above 101 Follow-up/Referrals: Lit Limon DO [Primary Care Provider] - 07/21/25 1:00 pm (follow up within one week ) Diet: Regular Addtl Attending Provider Instructions: Mr. Ahn, You were hospitalized after notification of a positive blood culture. However, you have no other signs of bacteremia (bacteria in the blood) as you have been afebrile, without a white blood cell count and no source of infection. It is likely that this bacteria was a contaminant during the first set of blood cultures. Your repeat blood cultures are negative at 24 hours but take 5 days to get final results. If they turn positive you will be notified, you can also check in with your PCP or the [facility] portal. However, given your symptoms I do not expect they will be positive. However, you did feel like your chills have improved with antibiotics so we will continue out a course of Augmentin. First dose tonight, 07/14. Take this with food. Activity: You can do normal everyday activities as your body allows. Take rest breaks if you feel tired. Do not overexert. Stop activity if you have pain, shortness of breath or feel dizzy. Follow-up appointments: Make an appointment with your primary care physician within one week of discharge. A copy of this summary will be sent to them. Every time you see your primary care physician, or any other doctor, bring your medication list, and a list of questions. CONTACT YOUR PRIMARY CARE PROVIDER if you experience any of the following: Shortness of breath or difficulty breathing Fevers or chills Feeling tired with normal activity or experiencing dizziness or fainting Difficulty following your treatment plan, or difficulty taking medications CALL 911 OR GO TO THE EMERGENCY DEPARTMENT if you experience any of the following: Severe abdominal pain or nausea/vomiting Severe chest pain, or chest pain that radiates (moves) to your jaw or arm Sudden, severe shortness of breath or difficulty breathing Thank you for allowing us to participate in your care. Pending Studies at Discharge: Yes (blood cultures ) Stand-Alone Forms: My [facility] Medications and DC Order Prescriptions: New amoxicillin-pot clavulanate 875-125 mg tablet 1 tab PO BID Qty: 14 0RF Continued acetaminophen [Tylenol Arthritis Pain] 650 mg tablet extended release 1,300 mg PO DIRECTED PRN (Reason: Pain) Patient Comments: 07/13- otc unable to verify pravastatin 40 mg tablet 40 mg PO DAILY Qty: 90 3RF potassium chloride 20 mEq tablet extended release 20 meq PO QAM Qty: 90 3RF losartan 50 mg tablet 50 mg PO BID 90 Days Qty: 180 3RF famotidine 20 mg tablet 20 mg PO BID PRN (Reason: HEARTBURN/INDIGESTION) Patient Comments: 07/13- otc/no fill history unable to verify multivitamin Tablet 1 tab PO QAM Patient Comments: 07/13- otc unable to verify Discharge Orders: Discharge Order (Routine); Ordered 07/14/25 Ordered By: Ruthie Villagran Admission Data Admit Date/Time: 07/13/25 02:49 Attending Provider: Charity Calix Admit Provider: Chalino Jackson Primary Care Provider: Lit Limon Other Providers: Rosana Weston Other Interventions: Discharge Summary Assessment (RN) Last Done: 07/14/25 10:11 Hospital Stay Data Consultations 07/13/25 01:47 ED Decision to Admit Stat Diagnostic Imagining Performed Chest X-Ray 07/13/25 01:45 EXAM: XR chest 1V portable CLINICAL HISTORY: Sepsis. TECHNIQUE: An X-ray image of the chest is obtained in AP projection. 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 FINDINGS: Pulmonary Parenchyma: Lungs are clear bilaterally. No evidence of consolidation, collapse, or focal opacities. No pulmonary nodules are identified. No evidence of pleural effusion or pleural thickening. Heart and Mediastinum: Heart size and shape are normal. No mediastinal widening or masses. No hilar or mediastinal lymphadenopathy. Bony Thorax: Bony thorax appears intact without fractures or deformities. Stable arthritis AC joints is noted Soft Tissues: Soft tissues overlying the chest wall are unremarkable. IMPRESSION: 1. No acute cardiopulmonary abnormalities are identified. 2. No interval time changes. Electronically signed by Wagner Limon 07-13-2025 03:20 AM Pending Results Patient Have Any Pending Studies at Discharge: Yes (blood cultures ) Discharge Instructions Given to Patient (Per Discharging Provider) Mr. Ahn, You were hospitalized after notification of a positive blood culture. However, you have no other signs of bacteremia (bacteria in the blood) as you have been afebrile, without a white blood cell count and no source of infection. It is likely that this bacteria was a contaminant during the first set of blood cultures. Your repeat blood cultures are negative at 24 hours but take 5 days to get final results. If they turn positive you will be notified, you can also check in with your PCP or the [facility] portal. However, given your symptoms I do not expect they will be positive. However, you did feel like your chills have improved with antibiotics so we will continue out a course of Augmentin. First dose tonight, 07/14. Take this with food. Activity: You can do normal everyday activities as your body allows. Take rest breaks if you feel tired. Do not overexert. Stop activity if you have pain, shortness of breath or feel dizzy. Follow-up appointments: Make an appointment with your primary care physician within one week of discharge. A copy of this summary will be sent to them. Every time you see your primary care physician, or any other doctor, bring your medication list, and a list of questions. CONTACT YOUR PRIMARY CARE PROVIDER if you experience any of the following: Shortness of breath or difficulty breathing Fevers or chills Feeling tired with normal activity or experiencing dizziness or fainting Difficulty following your treatment plan, or difficulty taking medications CALL 911 OR GO TO THE EMERGENCY DEPARTMENT if you experience any of the following: Severe abdominal pain or nausea/vomiting Severe chest pain, or chest pain that radiates (moves) to your jaw or arm Sudden, severe shortness of breath or difficulty breathing Thank you for allowing us to participate in your care. Total Time Total Time Spent Total Time Spent (In Minutes): Time spent day of discharge 36 minutes including direct patient care, medication reconciliation, documentation, review of labs and images, and coordination of care. Coding Level of Care Code 01211 INP/OBS DISCH >30 MIN Diagnoses Positive blood culture R78.81 Fatigue R53.83 Fatigue type: unspecified Hypertension I10 Hyperlipidemia E78.5
[2025-07-14] MEDS: FAMOTIDINE 20 MG TAB PO PRN (09:38)
== END 2025-07-14 11:09 | disposition home or self-care (01) | DRG 872 ==
LOC: ED 01:44 → EDINP 02:49 → INTOOBSV 02:49 → SUATTDRO 02:49 → 3N 04:19